=== PATIENT | female | born 1985 | race Caucasian/White ===

== ENCOUNTER 2019-03-17 13:34 | Emergency (ER) | payer OTHER ==
[~2019-03-17] VITALS: Ht 165.1 cm; Wt 73.0 kg
[2019-03-17 13:40] VITALS: BP 116/68
--- NOTE | 2019-03-17 14:12 | NUR ---
C/O RIGHT INGUINAL AREA PAIN X 2 DAYS DENIES VAG BLEED/DC ADMITS RECENT TUBAL LIGATION REVERSAL DENIES RECENT INJURY
--- NOTE | 2019-03-17 14:12 | NUR ---
LAB AT BEDSIDE
[2019-03-17 14:31] LABS: BASOPHILS % (AUTO) 0.4 % (0.0-2.0); EOSINOPHILS # (AUTO) 0.1 K/uL (0-0.4); EOSINOPHILS % (AUTO) 0.6 % (0.0-4.0); HEMATOCRIT 40.7 % (36-48); HEMOGLOBIN 13.7 g/dL (12.0-16.0); LYMPHOCYTES # (AUTO) 1.9 K/uL (2.5-16.5); LYMPHOCYTES % (AUTO) 22.8 % (20.5-51.1); MEAN CORPUSCULAR HEMOGLOBIN 33 pg (27-31); MEAN CORPUSCULAR HGB CONC 34 g/dL (33-37); MEAN CORPUSCULAR VOLUME 96.5 fL (80-94); MONOCYTES # (AUTO) 0.4 K/uL (0.8-1.0); MONOCYTES % (AUTO) 4.6 % (1.7-9.3); NEUTROPHILS % (AUTO) 71.6 % (42.2-75.2); PLATELET COUNT (AUTO) 269 K/uL (140-450); RED BLOOD CELL COUNT(AUTO) 4.22 MIL/uL (4.20-5.40); RED CELL DISTRIBUTION WIDTH 13.1 % (11.6-13.7); WHITE BLOOD COUNT (AUTO) 8.4 K/uL (4.8-10.8)
--- NOTE | 2019-03-17 14:32 | NUR ---
ULTRASOUND AT BEDSIDE
[2019-03-17 14:47] LABS: APPEARANCE,URINE CLEAR (CLEAR); BILIRUBIN,URINE NEGATIVE (NEGATIVE); BLOOD, URINE NEGATIVE (NEGATIVE); COLOR,URINE YELLOW (YELLOW); LEUKOCYTE ESTERASE ,URINE NEGATIVE (NEGATIVE); NITRITE, URINE NEGATIVE (NEGATIVE); PH,URINE 6.5 (5.0-9.0); UGLUCOSE NEGATIVE (NEGATIVE)
[2019-03-17 16:05] VITALS: BP 111/59
--- NOTE | 2019-03-17 16:05 | NUR ---
Patient discharged with v/s stable. Written and verbal after care instructions given and explained. Patient verbalized understanding. Ambulatory with steady gait. All questions addressed prior to discharge. Advised to follow up with PMD.
== END 2019-03-17 16:05 | disposition home or self-care (01) ==
LOC: MED 13:34
DX: O21.8 Other vomiting complicating pregnancy (principal); O26.891 Other specified pregnancy related conditions, first trimester; R10.32 Left lower quadrant pain; R10.31 Right lower quadrant pain; R50.9 Fever, unspecified; Z90.49 Acquired absence of other specified parts of digestive tract; Z98.890 Other specified postprocedural states; Z3A.01 Less than 8 weeks gestation of pregnancy
CPT/HCPCS: 36415; 76817; 81003; 81025; 84702; 85025; 86900; 86901; 99284; Q0092

== ENCOUNTER 2019-04-13 17:27 | Emergency (ER) | payer SELFPAY ==
[~2019-04-13] VITALS: Ht 165.1 cm; Wt 74.4 kg
[2019-04-13 18:05] VITALS: BP 116/68
--- NOTE | 2019-04-13 18:09 | NUR ---
URINE CUP HANDED TO PT FOR SAMPLE
--- NOTE | 2019-04-13 20:40 | NUR ---
PT AMBULATED TO BED 03
--- NOTE | 2019-04-13 20:45 | NUR ---
PATIENT PRESENTS TO ED WITH LOWER ABD CRAMPING X 1 WEEK. PT 10 WEEKS . PT DX AT [employer] WITH NO HEART MOVEMENT X 1 WEEK AGO. PT STATES SOME SPOTTING, NO CLOTS PASSED. PT TAKING TYLENOL WITH SLIGHT RELIEF FOR PAIN. PT ENIES FEVER OR CHILLS. DENIES N/V/D; SKIN IS PINK/WARM/DRY; AAOX4 WITH EVEN AND STEADY GAIT; LUNGS CLEAR BL; HR EVEN AND REGULAR; PT DENIES ANY FEVER, CP, SOB, OR COUGH AT THIS TIME; PATIENT STATES PAIN OF 7/10 AT THIS TIME; VSS; PATIENT POSITIONED FOR COMFORT; HOB ELEVATED; BEDRAILS UP X1; BED DOWN. ER MD MADE AWARE OF PT STATUS.
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
[2019-04-13] MEDS ORDERED: ACETAMINOPHEN EXTRA STRENGTH 500 MG TAB PO ONE (22:40)
[2019-04-13 22:55] VITALS: BP 114/73
== END 2019-04-13 22:56 | disposition home or self-care (01) ==
LOC: MED 17:27
DX: O26.91 Pregnancy related conditions, unspecified, first trimester (principal); Z3A.01 Less than 8 weeks gestation of pregnancy
CPT/HCPCS: 36415; 76801; 84702; 99284; Q0092

== ENCOUNTER 2019-04-14 21:09 | Emergency (ER) | payer MEDICAID ==
[~2019-04-14] VITALS: Ht 165.1 cm; Wt 68.0 kg
[2019-04-14 21:14] VITALS: BP 116/69
--- NOTE | 2019-04-14 21:25 | NUR ---
33 YEAR OLD FEMALE COMPLAINS OF 9/10 CRAMPING PAIN IN LOWER ABDOMEN THAT RADIATES TO BACK AREA. PATIENT STATES THAT SHE HAS HAD SOME BLEEDING DISCHARGE. PATIENT STATES THAT SHE IS 9-10 WEEKS . PATIENT DENIES NAUSEA AND VOMITTING. PATIENT ALERT AND ORIENTED, BREATHING EVEN AND UNLABORED, SKIN WARM AND DRY. BED IN LOWEST POSITION, LOCKED, BED RAIL UPX1. AT BEDSIDE PMH - DENIES MEDICATIONS - NONE ALLERGIES - NKA
--- NOTE | 2019-04-14 21:46 | NUR ---
PATIENT ALERT AND ORIENTED, BREATHING EVEN AND UNLABORED
[2019-04-14] MEDS ORDERED: ONDANSETRON 4 MG ODT PO ONE (22:15)
[2019-04-14] MEDS ORDERED: ACETAMINOPHEN EXTRA STRENGTH 500 MG TAB PO ONE (22:15)
[2019-04-14] MEDS ORDERED: ACETAMINOPHEN EXTRA STRENGTH 500 MG TAB ONE (22:25)
--- NOTE | 2019-04-14 23:47 | NUR ---
PATIENT ALERT AND ORIENTED, BREATHING EVEN AND UNLABORED
[2019-04-15] MEDS ORDERED: HYDROcodone/APAP 5/325 MG 1 TAB TAB PO ONE (00:55)
[2019-04-15 00:56] VITALS: BP 147/95
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
--- NOTE | 2019-04-15 00:56 | NUR ---
PATIENT SPEAKING WITH DR VICENTE, STATES HE WANTS TO GIVE ANOTHER PAIN MEDICATION AND ANOTHER PRESCRIPTION FOR NORCO
--- NOTE | 2019-04-15 01:00 | NUR ---
PATIENT DISCHARGED AND LEFT
== END 2019-04-15 00:56 | disposition home or self-care (01) ==
LOC: MED 21:09
DX: O20.0 Threatened abortion (principal); Z3A.10 10 weeks gestation of pregnancy
CPT/HCPCS: 36415; 84702; 99284; Q0162

== ENCOUNTER 2019-04-15 16:20 | Observation (INO) | payer MEDICAID ==
[~2019-04-15] VITALS: Ht 165.1 cm; Wt 72.6 kg
[2019-04-15 16:22] VITALS: BP 110/66
[2019-04-15] MEDS ORDERED: fentaNYL 0.05 MG/ML VIAL IVP ONE (17:20)
[2019-04-15 17:50] LABS: BASOPHILS % (AUTO) 0.2 % (0.0-2.0); EOSINOPHILS # (AUTO) 0.1 K/uL (0-0.4); EOSINOPHILS % (AUTO) 1.5 % (0.0-4.0); HEMATOCRIT 39.6 % (36-48); HEMOGLOBIN 13.1 g/dL (12.0-16.0); LYMPHOCYTES # (AUTO) 1.8 K/uL (2.5-16.5); LYMPHOCYTES % (AUTO) 21.1 % (20.5-51.1); MEAN CORPUSCULAR HEMOGLOBIN 33 pg (27-31); MEAN CORPUSCULAR HGB CONC 33 g/dL (33-37); MEAN CORPUSCULAR VOLUME 98.5 fL (80-94); MONOCYTES # (AUTO) 0.3 K/uL (0.8-1.0); NEUTROPHILS # (AUTO) 6.3 K/uL (1.8-7.7); NEUTROPHILS % (AUTO) 73.2 % (42.2-75.2); PLATELET COUNT (AUTO) 237 K/uL (140-450); RED BLOOD CELL COUNT(AUTO) 4.02 MIL/uL (4.20-5.40); RED CELL DISTRIBUTION WIDTH 13.3 % (11.6-13.7); WHITE BLOOD COUNT (AUTO) 8.6 K/uL (4.8-10.8)
[2019-04-15 18:01] LABS: ANION GAP 12.6 (8-16); CARBON DIOXIDE 24.2 mmol/L (21-32); CREATININE 0.8 mg/dL (0.6-1.3); POTASSIUM 3.8 mmol/L (3.5-5.1)
[2019-04-15 18:07] LABS: ALBUMIN 3.7 g/dL (3.4-5.0); TOTAL BILIRUBIN 1.7 mg/dL (0.0-1.0)
[2019-04-15] MEDS ORDERED: LACTATED RINGERS 1,000 ML IV ONE (21:15)
[2019-04-15] MEDS ORDERED: ZOLPIDEM 5 MG TAB PO ONE (22:30)
[2019-04-15] MEDS ORDERED: KETOROLAC 30 MG/ML VIAL IVP ONE (22:30)
[2019-04-15 22:45] VITALS: BP 101/51
[2019-04-15] MEDS ORDERED: ONDANSETRON 4 MG/2 ML VIAL ONE (23:03)
[2019-04-15] MEDS: ONDANSETRON 4 MG/2 ML VIAL IVP PRN (23:05)
[2019-04-16] VITALS: BP 108/59
[2019-04-16 05:44] LABS: PROTHROMBIN TIME 9.9 secs (10.8-13.4)
[2019-04-16] MEDS ORDERED: LIDOCAINE 2% 100 MG/5 ML SYR IVP ONE (06:02)
[2019-04-16] MEDS ORDERED: SEVOFLURANE 250 ML BTL INH ONE (06:02)
[2019-04-16] MEDS ORDERED: PROPOFOL 200 MG/20 ML VIAL IV ONE (06:02)
[2019-04-16] MEDS ORDERED: HYDROmorphone 1 MG/ML AMP IVP PRN (06:30)
[2019-04-16] MEDS ORDERED: ONDANSETRON 4 MG/2 ML VIAL IVP PRN (06:30)
[2019-04-16 08:00] VITALS: BP 110/61
[2019-04-16] MEDS: ONDANSETRON 4 MG/2 ML VIAL IVP PRN (10:35)
[2019-04-16] MEDS ORDERED: KETOROLAC 30 MG/ML VIAL IVP SCH (11:00)
== END 2019-04-16 13:10 | disposition home or self-care (01) ==
LOC: MED 16:20 → INTOOBSV 21:15 → MTU 21:15
PROVIDERS: ADMIT Obstetrics & Gynecology; ATTEND Obstetrics & Gynecology
DX: O02.1 Missed abortion (principal); Z3A.08 8 weeks gestation of pregnancy
CPT/HCPCS: 36415; 59820; 76817; 80053; 84702; 85025; 85610; 86886; 86900; 86901; 87081; 96374; 96375; 96376; 99285; G0378; J1170; J1885; J2001; J2405; J2704; J3010; J7030; J7120; Q0092

== ENCOUNTER 2019-06-03 03:15 | Emergency (ER) | payer MEDICAID ==
[~2019-06-03] VITALS: Ht 165.1 cm; Wt 72.6 kg
[2019-06-03 03:20] VITALS: BP 115/77
--- NOTE | 2019-06-03 03:20 | NUR ---
TO BED # 04 AMBULATORY
--- NOTE | 2019-06-03 03:40 | NUR ---
33 YEAR OLD FEMALE COMPLAINS OF VAGINAL BLEEDING SINCE 20MINS AGO. PATIENT COMPLAINS OF ON/OFF CRAMPING PAIN. PATIENT DENIES PAIN CURRENTLY. PATIENT STATES SHE IS BUT DOES NOT KNOW HOW MANY WEEKS. PATIENT AOX4, BREATHING EVEN AND UNLABORED, SKIN WARM AND DRY. BED IN LOWEST POSITION, LOCKED, BED RAIL UPX1. AT BEDSIDE PMH - DENIES ALLERGIES - NKA
[2019-06-03 04:04] LABS: BASOPHILS % (AUTO) 0.5 % (0.0-2.0); EOSINOPHILS # (AUTO) 0.3 K/uL (0-0.4); EOSINOPHILS % (AUTO) 4.1 % (0.0-4.0); HEMATOCRIT 38.5 % (36-48); HEMOGLOBIN 12.9 g/dL (12.0-16.0); LYMPHOCYTES # (AUTO) 2.1 K/uL (2.5-16.5); LYMPHOCYTES % (AUTO) 35.3 % (20.5-51.1); MEAN CORPUSCULAR HEMOGLOBIN 33 pg (27-31); MEAN CORPUSCULAR HGB CONC 34 g/dL (33-37); MEAN CORPUSCULAR VOLUME 96.8 fL (80-94); MONOCYTES # (AUTO) 0.4 K/uL (0.8-1.0); MONOCYTES % (AUTO) 6.2 % (1.7-9.3); NEUTROPHILS # (AUTO) 3.3 K/uL (1.8-7.7); NEUTROPHILS % (AUTO) 53.9 % (42.2-75.2); PLATELET COUNT (AUTO) 216 K/uL (140-450); RED BLOOD CELL COUNT(AUTO) 3.98 MIL/uL (4.20-5.40); RED CELL DISTRIBUTION WIDTH 12.7 % (11.6-13.7); WHITE BLOOD COUNT (AUTO) 6.1 K/uL (4.8-10.8)
[2019-06-03 04:13] LABS: APPEARANCE,URINE CLEAR (CLEAR); BILIRUBIN,URINE NEGATIVE (NEGATIVE); BLOOD, URINE NEGATIVE (NEGATIVE); COLOR,URINE YELLOW (YELLOW); LEUKOCYTE ESTERASE ,URINE NEGATIVE (NEGATIVE); NITRITE, URINE NEGATIVE (NEGATIVE); PH,URINE 6.5 (5.0-9.0); UGLUCOSE NEGATIVE (NEGATIVE)
--- NOTE | 2019-06-03 05:11 | NUR ---
PATIENT ALERT AND AWAKE, BREATHING EVEN AND UNLABORED
[2019-06-03 06:20] VITALS: BP 115/77
--- NOTE | 2019-06-03 06:20 | NUR ---
Patient discharged with v/s stable. Written and verbal after care instructions about vaginal bleeding during given and explained. Patient verbalized understanding. Ambulatory with steady gait. All questions addressed prior to discharge. Advised to follow up with PMD.
== END 2019-06-03 06:20 | disposition home or self-care (01) ==
LOC: MED 03:15
DX: O20.8 Other hemorrhage in early pregnancy (principal)
CPT/HCPCS: 36415; 76817; 81003; 81025; 84702; 85025; 86900; 86901; 99284; Q0092

== ENCOUNTER 2019-06-06 08:22 | Emergency (ER) | payer MEDICAID ==
[~2019-06-06] VITALS: Ht 165.1 cm; Wt 74.4 kg
--- NOTE | 2019-06-06 08:25 | NUR ---
PT TO ER BED 8
[2019-06-06 08:27] VITALS: BP 117/61
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
--- NOTE | 2019-06-06 09:43 | NUR ---
PATIENT RESTING QUIETLY IN BED. WILL CONTINUE TO MONITOR. SIDERAIL X1
--- NOTE | 2019-06-06 10:47 | NUR ---
ULTRASOUND AT BEDSIDE.
--- NOTE | 2019-06-06 11:31 | NUR ---
PATIENT REQUESTING QUIETLY IN BED, DENIES ANY PAIN AT THIS TIME. WILL CONTINUE TO MONITOR. SIDERAIL X1
--- NOTE | 2019-06-06 12:10 | NUR ---
Patient discharged with v/s stable. Written and verbal after care instructions given and explained. Patient verbalized understanding. Ambulatory with steady gait. All questions addressed prior to discharge. Advised to follow up with PMD. PATIENT GIVEN CD IMAGES.
[2019-06-06 12:11] VITALS: BP 117/61
== END 2019-06-06 11:31 | disposition home or self-care (01) ==
LOC: MED 08:22
DX: O26.899 Other specified pregnancy related conditions, unspecified trimester (principal); R10.9 Unspecified abdominal pain; M54.9 Dorsalgia, unspecified
CPT/HCPCS: 36415; 76801; 84702; 99284; Q0092

== ENCOUNTER 2019-06-22 16:01 | Emergency (ER) | payer MEDICAID ==
[~2019-06-22] VITALS: Ht 165.1 cm; Wt 75.7 kg
[2019-06-22 16:10] VITALS: BP 112/62
--- NOTE | 2019-06-22 16:17 | NUR ---
Ambulated to bed 6
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
--- NOTE | 2019-06-22 16:34 | NUR ---
AT BEDSIDE EXAMINING PT
[2019-06-22 17:08] LABS: APPEARANCE,URINE CLEAR (CLEAR); BILIRUBIN,URINE NEGATIVE (NEGATIVE); BLOOD, URINE NEGATIVE (NEGATIVE); COLOR,URINE YELLOW (YELLOW); LEUKOCYTE ESTERASE ,URINE NEGATIVE (NEGATIVE); NITRITE, URINE NEGATIVE (NEGATIVE); UGLUCOSE NEGATIVE (NEGATIVE)
--- NOTE | 2019-06-22 17:21 | NUR ---
PT SITTING IN BED IN POSITION OF COMFORT, BED LOW AND WHEELS LOCKED, 1 SIDERAIL UP, VSS. WILL CONTINUE TO MONITOR.
[2019-06-22 17:46] LABS: BASOPHILS % (AUTO) 0.5 % (0.0-2.0); EOSINOPHILS # (AUTO) 0.2 K/uL (0-0.4); EOSINOPHILS % (AUTO) 3.6 % (0.0-4.0); HEMATOCRIT 35.2 % (36-48); HEMOGLOBIN 11.9 g/dL (12.0-16.0); LYMPHOCYTES # (AUTO) 1.4 K/uL (2.5-16.5); LYMPHOCYTES % (AUTO) 25.1 % (20.5-51.1); MEAN CORPUSCULAR HEMOGLOBIN 33 pg (27-31); MEAN CORPUSCULAR HGB CONC 34 g/dL (33-37); MEAN CORPUSCULAR VOLUME 96.9 fL (80-94); MONOCYTES # (AUTO) 0.3 K/uL (0.8-1.0); NEUTROPHILS # (AUTO) 3.7 K/uL (1.8-7.7); NEUTROPHILS % (AUTO) 64.8 % (42.2-75.2); PLATELET COUNT (AUTO) 241 K/uL (140-450); RED BLOOD CELL COUNT(AUTO) 3.63 MIL/uL (4.20-5.40); RED CELL DISTRIBUTION WIDTH 12.9 % (11.6-13.7); WHITE BLOOD COUNT (AUTO) 5.8 K/uL (4.8-10.8)
--- NOTE | 2019-06-22 18:34 | NUR ---
PT RESTING IN POSITON OF COMFORT, BED LOW AND WHEELS LOCKED, 1 SIDERAIL UP.VSS. WILL CONTINUE TO MONITOR.
--- NOTE | 2019-06-22 19:03 | NUR ---
DPatient discharged with v/s stable. Written and verbal after care instructions given and explained. Patient alert, oriented and verbalized understanding of instructions. Ambulatory with steady gait. All questions addressed prior to discharge. ID band removed. Patient advised to follow up with PMD. Rx of TRAMADOL AND MOTRIN given. Patient educated on indication of medication including possible reaction and side effects. Opportunity to ask questions provided and answered.
[2019-06-22 19:04] VITALS: BP 134/72
== END 2019-06-22 19:03 | disposition home or self-care (01) ==
LOC: MED 16:01
DX: S39.012A Strain of muscle, fascia and tendon of lower back, initial encounter (principal); N93.9 Abnormal uterine and vaginal bleeding, unspecified; Z98.890 Other specified postprocedural states; Z98.41 Cataract extraction status, right eye; X58.XXXA Exposure to other specified factors, initial encounter; Y93.89 Activity, other specified; Y92.89 Other specified places as the place of occurrence of the external cause; Y99.8 Other external cause status
CPT/HCPCS: 36415; 76770; 76801; 81003; 81025; 84702; 85025; 99285; Q0092

== ENCOUNTER 2019-07-01 03:28 | Emergency (ER) | payer MEDICAID ==
[~2019-07-01] VITALS: Ht 165.1 cm; Wt 74.8 kg
[2019-07-01 03:32] VITALS: BP 110/69
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
[2019-07-01] MEDS ORDERED: NACL 0.9% 1,000 ML IV ONE (04:50)
[2019-07-01] MEDS ORDERED: KETOROLAC 30 MG/ML VIAL IVP ONE (04:50)
--- NOTE | 2019-07-01 05:00 | NUR ---
PATIENT ALERT AND AWAKE, BREATHING EVEN AND UNLABORED
[2019-07-01 05:04] LABS: APPEARANCE,URINE HAZY (CLEAR); BILIRUBIN,URINE NEGATIVE (NEGATIVE); BLOOD, URINE 3+ (NEGATIVE); COLOR,URINE RED (YELLOW); LEUKOCYTE ESTERASE ,URINE TRACE (NEGATIVE); NITRITE, URINE NEGATIVE (NEGATIVE); UGLUCOSE NEGATIVE (NEGATIVE)
[2019-07-01 05:18] LABS: RBC,URINE TOO NUMEROUS TO COUN /HPF (0-5)
[2019-07-01] MEDS ORDERED: cefTRIAXone 1,000 MG VIAL ONE (05:30)
--- NOTE | 2019-07-01 05:30 | NUR ---
X-Ray at bedside.
[2019-07-01 06:04] LABS: BASOPHILS % (AUTO) 0.6 % (0.0-2.0); EOSINOPHILS # (AUTO) 0.4 K/uL (0-0.4); EOSINOPHILS % (AUTO) 5.2 % (0.0-4.0); HEMATOCRIT 33.7 % (36-48); HEMOGLOBIN 11.5 g/dL (12.0-16.0); LYMPHOCYTES # (AUTO) 1.3 K/uL (2.5-16.5); LYMPHOCYTES % (AUTO) 18.9 % (20.5-51.1); MEAN CORPUSCULAR HEMOGLOBIN 33 pg (27-31); MEAN CORPUSCULAR HGB CONC 34 g/dL (33-37); MEAN CORPUSCULAR VOLUME 97.6 fL (80-94); MONOCYTES # (AUTO) 0.4 K/uL (0.8-1.0); MONOCYTES % (AUTO) 5.4 % (1.7-9.3); NEUTROPHILS # (AUTO) 4.9 K/uL (1.8-7.7); NEUTROPHILS % (AUTO) 69.9 % (42.2-75.2); PLATELET COUNT (AUTO) 249 K/uL (140-450); RED BLOOD CELL COUNT(AUTO) 3.45 MIL/uL (4.20-5.40)
--- NOTE | 2019-07-01 06:13 | NUR ---
PATIENT ALERT AND AWAKE, BREATHING EVEN AND UNLABORED
[2019-07-01 06:22] LABS: ANION GAP 12.5 (8-16); CARBON DIOXIDE 28.4 mmol/L (21-32); CREATININE 0.8 mg/dL (0.6-1.3); POTASSIUM 3.9 mmol/L (3.5-5.1)
[2019-07-01 06:40] LABS: ALBUMIN 3.5 g/dL (3.4-5.0); TOTAL BILIRUBIN 1.4 mg/dL (0.0-1.0)
--- NOTE | 2019-07-01 06:52 | NUR ---
PT TAKEN TO CT
--- NOTE | 2019-07-01 07:04 | NUR ---
PT RETURN FROM CT
--- NOTE | 2019-07-01 07:22 | NUR ---
PT RESTING IN BED, SIDE RAIL X1
--- NOTE | 2019-07-01 07:22 | NUR ---
REPORT GIVEN TO ALVERTO RAJAN, TRANSFER OF CARE AT THIS TIME
[2019-07-01 08:42] VITALS: BP 110/62
== END 2019-07-01 08:43 | disposition home or self-care (01) ==
LOC: MED 03:28
DX: M54.9 Dorsalgia, unspecified (principal); M25.511 Pain in right shoulder; R06.02 Shortness of breath; M79.606 Pain in leg, unspecified
CPT/HCPCS: 36415; 71045; 71275; 80053; 81001; 81025; 85025; 85379; 87040; 87086; 93970; 96365; 96375; 99285; J0696; J1885; J7030; J7060; Q0092; Q9967

== ENCOUNTER 2020-04-22 08:54 | Inpatient (IN) | payer MEDICAID, SELFPAY ==
[~2020-04-22] VITALS: Ht 167.6 cm; Wt 87.5 kg
--- NOTE | 2020-04-22 09:06 | NUR ---
PATIENT HAS BEEN SCREENED AND CATEGORIZED LOW NUTRITION RISK. PATIENT WILL BE SEEN WITHIN 7 DAYS OF ADMISSION. 04/28/[address]
[2020-04-22] MEDS ORDERED: LACTATED RINGERS 1,000 ML IV SCH (09:35)
[2020-04-22] MEDS ORDERED: CARBOPROST 250 MCG/ML AMP IM PRN (09:35)
[2020-04-22] MEDS ORDERED: METHYLERGONOVINE 0.2 MG/ML AMP IM PRN (09:35)
[2020-04-22 09:59] LABS: BASOPHILS % (AUTO) 0.3 % (0.0-2.0); EOSINOPHILS # (AUTO) 0.1 K/uL (0-0.4); EOSINOPHILS % (AUTO) 0.9 % (0.0-4.0); HEMOGLOBIN 9.3 g/dL (12.0-16.0); LYMPHOCYTES # (AUTO) 1.1 K/uL (2.5-16.5); LYMPHOCYTES % (AUTO) 16.8 % (20.5-51.1); MEAN CORPUSCULAR HEMOGLOBIN 26 pg (27-31); MEAN CORPUSCULAR HGB CONC 32 g/dL (33-37); MEAN CORPUSCULAR VOLUME 82.3 fL (80-94); MONOCYTES # (AUTO) 0.5 K/uL (0.8-1.0); MONOCYTES % (AUTO) 8.6 % (1.7-9.3); NEUTROPHILS # (AUTO) 4.6 K/uL (1.8-7.7); NEUTROPHILS % (AUTO) 73.4 % (42.2-75.2); PLATELET COUNT (AUTO) 225 K/uL (140-450); RED BLOOD CELL COUNT(AUTO) 3.52 MIL/uL (4.20-5.40); WHITE BLOOD COUNT (AUTO) 6.3 K/uL (4.8-10.8)
[2020-04-22 10:12] VITALS: BP 120/64
[2020-04-22 10:12] LABS: APPEARANCE,URINE CLEAR (CLEAR); BILIRUBIN,URINE NEGATIVE (NEGATIVE); COLOR,URINE YELLOW (YELLOW); LEUKOCYTE ESTERASE ,URINE TRACE (NEGATIVE); NITRITE, URINE NEGATIVE (NEGATIVE); UGLUCOSE NEGATIVE (NEGATIVE)
[2020-04-22 10:15] LABS: BLOOD, URINE TRACE (NEGATIVE); RBC,URINE 0-5 /HPF (0-5); WBC,URINE 0-5 /HPF (0-5)
[2020-04-22 10:28] LABS: ALBUMIN 2.7 g/dL (3.4-5.0); ANION GAP 17.1 (8-16); CARBON DIOXIDE 22.8 mmol/L (21-32); CREATININE 0.7 mg/dL (0.6-1.3); POTASSIUM 3.9 mmol/L (3.5-5.1); TOTAL BILIRUBIN 0.8 mg/dL (0.0-1.0)
[2020-04-22] MEDS ORDERED: MISOPROSTOL 25 MCG TAB ONE (11:21)
[2020-04-22] MEDS ORDERED: ROPIVACAINE 0.2%/NS PREMIX 200 ML EPI ONE (13:08)
[2020-04-22] MEDS ORDERED: ROPIVACAINE 0.2%/NS PREMIX 100 ML EPI SCH ×2 (13:40→14:00)
[2020-04-22] MEDS ORDERED: OXYTOCIN 20 UNITS/LR PREMIX 1,000 ML IV ONE (17:23)
[2020-04-22] MEDS ORDERED: OXYTOCIN 20 UNITS in LACTATED RINGERS 1,000 ML IV SCH (17:25)
[2020-04-22] MEDS ORDERED: MISOPROSTOL 200 MCG TAB VG SCH (18:00)
[2020-04-22] MEDS ORDERED: FERR-212 PO (18:22)
[2020-04-22] MEDS ORDERED: DOCU-299 PO (18:22)
[2020-04-22] MEDS ORDERED: DOCO200C2 PO (18:22)
[2020-04-22] MEDS ORDERED: ONDANSETRON 4 MG/2 ML VIAL IVP PRN ×2 (19:50→20:00)
[2020-04-23] MEDS ORDERED: METHYLERGONOVINE 0.2 MG TAB PO PRN (01:35)
[2020-04-23] MEDS ORDERED: METHYLERGONOVINE 0.2 MG/ML AMP IM PRN (01:35)
[2020-04-23] MEDS ORDERED: DOCUSATE SODIUM 100 MG GELCAP PO PRN (01:35)
[2020-04-23] MEDS ORDERED: OXYTOCIN 10 UNITS/ML VIAL IM PRN (01:35)
[2020-04-23] MEDS ORDERED: BENZOCAINE/MENTHOL 20%-0.5% 60 GM CAN TP PRN (01:35)
[2020-04-23] MEDS ORDERED: SIMETHICONE 80 MG TAB.CHEW PO PRN (01:35)
[2020-04-23] MEDS ORDERED: MEASLES, MUMPS, AND RUBELLA 1 VIAL SQVAC PRN (01:35)
[2020-04-23] MEDS ORDERED: bisacodyL 5 MG TABEC PO PRN (01:35)
[2020-04-23] MEDS: IBUPROFEN 800 MG TAB PO PRN ×2 (02:37→08:29)
[2020-04-23] MEDS ORDERED: HYDROcodone/APAP 5/325 MG 1 TAB TAB PO PRN (07:55)
[2020-04-23] MEDS: IBUPROFEN 600 MG TAB PO PRN ×2 (13:06→18:55)
[2020-04-24] MEDS: IBUPROFEN 600 MG TAB PO PRN (02:22)
[2020-04-24 10:07] LABS: HEMOGLOBIN 8.9 g/dL (12.0-16.0)
== END 2020-04-24 15:00 | disposition home or self-care (01) | DRG 560 ==
LOC: MLD 08:54 → MFCC 04-23 04:30
PROVIDERS: ADMIT Obstetrics & Gynecology; ATTEND Obstetrics & Gynecology
PROC: 10E0XZZ Delivery of Products of Conception, External Approach (ICD-10-PCS; principal; 2020-04-23)
DX: O99.02 Anemia complicating childbirth (principal); Z20.822 Contact with and (suspected) exposure to COVID-19; Z37.0 Single live birth; Z3A.39 39 weeks gestation of pregnancy; Z90.49 Acquired absence of other specified parts of digestive tract; Z98.51 Tubal ligation status; Z83.3 Family history of diabetes mellitus; D62 Acute posthemorrhagic anemia
CPT/HCPCS: 36415; 51702; 59200; 59409; 76815; 80053; 81001; 85018; 85025; 86592; 86886; 86900; 86901; J2405; J2590; J2795; J7120

== ENCOUNTER 2023-08-23 22:16 | Emergency (ER) | payer MEDICAID, OTHER ==
[~2023-08-23] VITALS: Ht 165.1 cm; Wt 73.9 kg
[~2023-08-23 22:16] MED LIST: DOCO200C2 PO; DOCU-299 PO; FERR-212 PO
[2023-08-23 22:17] VITALS: BP 104/46; PULSE 82; RESP 16; TEMP 98.3; O2SAT 100
[2023-08-23 23:01] LABS: APPEARANCE,URINE CLEAR (CLEAR); BILIRUBIN,URINE NEGATIVE (NEGATIVE); BLOOD, URINE NEGATIVE (NEGATIVE); COLOR,URINE YELLOW (YELLOW); LEUKOCYTE ESTERASE ,URINE NEGATIVE (NEGATIVE); NITRITE, URINE NEGATIVE (NEGATIVE); PROTEIN,URINE NEGATIVE (NEGATIVE); UGLUCOSE NEGATIVE (NEGATIVE); UROBILINOGEN,URINE 0.2 EU/dL (0.2 - 1)
[2023-08-23 23:19] VITALS: TEMP 98.3
[2023-08-23 23:25] LABS: BASOPHILS % (AUTO) 0.4 % (0.0-2.0); EOSINOPHILS # (AUTO) 0.1 K/uL (0-0.4); EOSINOPHILS % (AUTO) 2.2 % (0.0-4.0); HEMATOCRIT 38.4 % (36-48); HEMOGLOBIN 13.5 g/dL (12.0-16.0); LYMPHOCYTES # (AUTO) 1.4 K/uL (2.5-16.5); LYMPHOCYTES % (AUTO) 22.4 % (20.5-51.1); MEAN CORPUSCULAR HEMOGLOBIN 34 pg (27-31); MEAN CORPUSCULAR HGB CONC 35 g/dL (33-37); MEAN CORPUSCULAR VOLUME 94.8 fL (80-94); MONOCYTES # (AUTO) 0.5 K/uL (0.8-1.0); MONOCYTES % (AUTO) 8.9 % (1.7-9.3); NEUTROPHILS # (AUTO) 4.1 K/uL (1.8-7.7); NEUTROPHILS % (AUTO) 66.1 % (42.2-75.2); PLATELET COUNT (AUTO) 229 K/uL (140-450); RED BLOOD CELL COUNT(AUTO) 4.05 MIL/uL (4.20-5.40); RED CELL DISTRIBUTION WIDTH 13.3 % (11.6-13.7); WHITE BLOOD COUNT (AUTO) 6.1 K/uL (4.8-10.8)
[2023-08-24 01:45] VITALS: BP 109/57; PULSE 79; RESP 18; O2SAT 100
[2023-08-24] MEDS ORDERED: ACET-10509 PO (01:51)
[2023-08-24] MEDS: ACETAMINOPHEN EXTRA STRENGTH 500 MG TAB PO ONE (01:51)
== END 2023-08-24 02:10 | disposition home or self-care (01) ==
LOC: MED 22:16
DX: O20.0 Threatened abortion (principal); Z3A.01 Less than 8 weeks gestation of pregnancy; Z79.899 Other long term (current) drug therapy
CPT/HCPCS: 36415; 76817; 81003; 81025; 84702; 85025; 86900; 86901; 99284; Q0092

== ENCOUNTER 2023-09-12 21:15 | Emergency (ER) | payer OTHER ==
[~2023-09-12] VITALS: Ht 165.1 cm; Wt 67.6 kg
[~2023-09-12 21:15] MED LIST changes: +ACET-10509 PO
[2023-09-12 21:49] VITALS: BP 108/46; PULSE 69; RESP 18; TEMP 98.4; O2SAT 99
[2023-09-12 22:06] VITALS: BP 108/46; PULSE 69; RESP 18; TEMP 98.4; O2SAT 98
[2023-09-12 22:33] LABS: APPEARANCE,URINE CLEAR (CLEAR); BILIRUBIN,URINE NEGATIVE (NEGATIVE); BLOOD, URINE TRACE-I (NEGATIVE); COLOR,URINE YELLOW (YELLOW); LEUKOCYTE ESTERASE ,URINE NEGATIVE (NEGATIVE); NITRITE, URINE NEGATIVE (NEGATIVE); PROTEIN,URINE NEGATIVE (NEGATIVE); UGLUCOSE NEGATIVE (NEGATIVE); UROBILINOGEN,URINE 0.2 EU/dL (0.2 - 1)
[2023-09-12 22:35] LABS: BACTERIA,URINE 10-30 (MOD) /HPF (None Seen); MUCUS,URINE 1+ /LPF (None Seen); RBC,URINE 0-5 /HPF (0-5); SQUAMOUS EPITHELIAL CELL,UR 0-3 (FEW) /LPF (0-3 (FEW)); WBC,URINE 0-5 /HPF (0-5)
[2023-09-13] MEDS ORDERED: CEPH-588 PO (00:49)
[2023-09-13] MEDS ORDERED: metroNIDAZOLE 250 MG TAB ONE (00:57)
[2023-09-13] MEDS: metroNIDAZOLE 250 MG TAB PO ONE (00:59)
== END 2023-09-13 00:58 | disposition home or self-care (01) ==
LOC: MED 21:15
DX: O23.41 Unspecified infection of urinary tract in pregnancy, first trimester (principal); N39.0 Urinary tract infection, site not specified; O23.591 Infection of other part of genital tract in pregnancy, first trimester; B96.89 Other specified bacterial agents as the cause of diseases classified elsewhere; Z3A.09 9 weeks gestation of pregnancy
CPT/HCPCS: 81001; 87086; 87210; 87491; 99284